=== PATIENT | male | born 1955 ===

== ENCOUNTER 2019-03-02 09:19 | Emergency (ER) | payer OTHER ==
[~2019-03-02] VITALS: Ht 180.3 cm; Wt 81.6 kg
[2019-03-02] MEDS ORDERED: ATIVAN2 M1 (09:24)
[2019-03-02] MEDS ORDERED: NEURONTIN800 MG (09:24)
== END 2019-03-02 13:55 | disposition home or self-care (01) ==
LOC: ER 09:19
DX: K52.89 Other specified noninfective gastroenteritis and colitis (principal)